=== PATIENT | female | born 1990 | race Asian ===

== ENCOUNTER 2022-11-21 12:26 | Outpatient (CLI) | payer OTHER ==
[2022-11-22 07:06] LABS: ESTRADIOL 47.6 pg/mL (.); FOLLICLE STIMULATION HORMONE 7.1 mIU/mL (.)
[2022-11-22 08:06] LABS: LUETENIZING HORMONE 2.8 mIU/mL (.)
== END 2022-11-21 19:15 | disposition home or self-care (01) ==
LOC: SLB 12:26
PROVIDERS: ATTEND Specialist
DX: E34.9 Endocrine disorder, unspecified (principal); N92.6 Irregular menstruation, unspecified
CPT/HCPCS: 36415; 82670; 83001; 83002

== ENCOUNTER 2022-11-27 09:23 | Outpatient (CLI) | payer OTHER ==
[2022-11-28 08:06] LABS: ESTRADIOL 59.2 pg/mL (.); FOLLICLE STIMULATION HORMONE 4.9 mIU/mL (.); LUETENIZING HORMONE 5.7 mIU/mL (.); PROLACTIN 21.1 ng/mL (4.8-23.3)
== END 2022-11-27 19:46 | disposition home or self-care (01) ==
LOC: SLB 09:23
PROVIDERS: ATTEND Specialist
DX: N92.1 Excessive and frequent menstruation with irregular cycle (principal); E34.9 Endocrine disorder, unspecified
CPT/HCPCS: 36415; 82627; 82670; 83001; 83002; 83037; 83525; 84146